=== PATIENT | female | born 1980 | race Two or more races ===

== ENCOUNTER 2024-06-10 01:25 | Emergency (ER) | payer BC, SELFPAY ==
[2024-06-10] VITALS (9 sets, daily range): BP systolic 93–122; BP diastolic 52–77; PULSE 72–76; RESP 16–18; TEMP 36.4–36.6; O2SAT 96–100
--- NOTE | ~2024-06-10 | CT_ITS ---
CT of the Abdomen and Pelvis: Indication: Abdominal pain Technique: 2.5 mm axial scans were obtained through the abdomen and pelvis following intravenous adm inistration of 100 cc of Omnipaque 350. Dose reduction technique was used on this scan by utilizing a utomated exposure control and iterative reconstruction technique. The dose-length product (DLP) was 1 92.26 mGy-cm. Findings: Scans through the lung bases are unremarkable. The liver, spleen, pancreas, gallbladder, adrenals and kidneys are within normal limits. No evidence of aortic aneurysm. No lymphadenopathy. No bowel obstruction or bowel wall thickening. There is no evidence to suggest acute appendicitis. Images through the pelvis were performed. Urinary bladder unremarkable. Multiple uterine fibroids are present. There is a 4.8 x 3.8 cm right adnexal mass with irregular peripheral enhancement (axial matthew ge 117), which could reflect additional exophytic fibroid, though ovarian lesion is completely exclud ed. There is trace abdominal pelvic ascites. Impression: Multiple uterine fibroids. Additional 4.9 x 3.8 cm right adnexal mass could reflect exophytic fibroid versus possibly right ovarian lesion. Consider ultrasound, or possibly MR, to further evaluate. Trace abdominal pelvic ascites, nonspecific. Reviewed, dictated and finalized at location M. Impression: Multiple uterine fibroids. Additional 4.9 x 3.8 cm right adnexal mass could ref lect exophytic fibroid versus possibly right ovarian lesion. Consider ultrasoun d, or possibly MR, to further evaluate. Trace abdominal pelvic ascites, nonspecific.
[2024-06-10 01:48] LABS: Basophils Percent Auto 0.3 % (0.2-1.2); Eosinophils Absolute Auto 0.2 K/mm3 (0-0.3); Hematocrit 39.5 % (37.0-47.0); Hemoglobin 13.3 g/dL (12.0-15.0); Immature Granulocyte Absolute 0.02 K/mm3 (0.00-0.031); Immature Granulocyte Percent A 0.3 % (0-0.5); Lymphocytes Percent Auto 23.4 % (18.3-44.2); Mean Corpuscular HGB Conc 33.7 g/dl (32-36); Mean Corpuscular Hemoglobin 29.9 pg (26-34); Mean Corpuscular Volume 88.8 fl (80-100); Mean Platelet Volume 8.9 fl (7.4-10.4); Monocytes Absolute Auto 0.3 K/mm3 (0.1-0.6); Neutrophils Absolute Auto 5.4 K/mm3 (1.3-6.7); Platelet Count Result 279 k/mm3 (150-375); Red Blood Count 4.45 M/mm3 (4.2-5.4); Red Cell Distribution Width 13.2 % (11.5-14.5); White Blood Count 7.7 K/mm3 (4.5-10.0)
[2024-06-10 02:03] LABS: Alanine Aminotransferase 17 U/L (6-35); Albumin Level 4.3 g/dL (3.5-5.1); Alkaline Phosphatase 105 U/L (38-126); Anion Gap 8 mmol/L (4-12); Aspartate Amino Transferase 25 U/L (14-36); Bilirubin,Total 0.3 mg/dL (0.2-1.3); Blood Urea Nitrogen 12 mg/dL (7-17); Calcium 8.8 mg/dL (8.4-10.2); Carbon Dioxide 26 mmol/L (22-30); Chloride 103 mmol/L (98-107); Estimated CRCL calculation 86 ml/min; Estimated Glomerular Filt Rate > 60; Glucose 107 mg/dL (65-110); Lipase 73 U/L (23-300); Potassium 3.6 mmol/L (3.4-5.0); Sodium 137 mmol/L (137-145)
[2024-06-10 02:06] LABS: Bacteria Urine None Seen /hpf; Non Pathogenic Casts 0-2; RBC Urine >100 /hpf (0-2); Squamous Epithelial Cell Urine None Seen /hpf (Few)
[2024-06-10 02:14] LABS: Add Urine Microscopic? YES; Appearance Urine Cloudy (Clear); Bilirubin Urine Negative (Negative); Blood Urine 3+ (Negative); Color Urine Light Red (Yellow); Glucose Urine UA Negative (Negative); Ketones Urine Negative (Negative); Leukocyte Esterase Ur Trace LEU/UL (Negative); Nitrate Urine Negative (Negative); Protein Urine 2+ mg/dL (Negative); Specific Grav Ur 1.009 (1.001-1.035); pH Urine 6.5 (5.0-9.0)
[2024-06-10 03:32] LABS: Pregnancy On Board Control Positive; Urine Pregnancy Test Negative
--- NOTE | 2024-06-10 04:50 | PC.NURSE ---
pt declines morphine and zofran at this time. pt does not want this strong of a medication at this time.
[2024-06-10] MEDS: ACETAMINOPHEN 325 MG TABLET 650 MG PO (04:52)
--- NOTE | 2024-06-10 06:25 | ED.ABDPAIN ---
HPI - Abdominal Pain General Chief Complaint: Abdominal Pain Stated Complaint: lower abd pain Time Seen by Provider: 06/10/24 03:09 History of Present Illness HPI narrative: Patient is a 43-year-old female who presents to the emergency department this is complaining of lower abdominal pain mainly in the suprapubic region and left lower quadrant. Patient states that the pain has been present for 3 days and has persisted so she from decided to come to the emergency department for further evaluation. Patient admits that she has had the same pain which normally occurs around her menstrual cycle for the past 3 months. Patient has not followed up with her primary care physician and states that she does not have an OBGYN. Denies any nausea or vomiting, any diarrhea, constipation, chest pain, shortness of breath, fevers or chills. Related Data Allergies Allergy/AdvReac Type Severity Reaction Status Date / Time No Known Allergies Allergy Verified 06/10/24 01:26 Review of Systems Review of Systems: All systems are reviewed and are negative unless stated otherwise in the HPI. Exam Narrative: General: Alert, awake, afebrile, in no acute distress. HEENT: PERRL, no rhinorrhea, no post nasal drip, oropharynx clear. Cardiovascular: Regular rate and rhythm, no murmurs, rubs or gallops, no peripheral edema. Respiratory: Clear to auscultation bilaterally, no tachypnea, no wheezing, no rhonchi, no rubs, no respiratory distress. Abdomen: Soft, tenderness palpation over the suprapubic region, nondistended, no rebound, no guarding, no peritoneal signs. Musculoskeletal: No joint swelling or deformity, normal muscle tone. Skin: No rashes or petechia, no signs of infection. Neurological: Alert and oriented to person, place, and time. Follows all commands. No focal deficits, speech is clear and fluent. Course Vital Signs Vital signs: Vital Signs Temperature 97.5 F L 06/10/24 01:34 Pulse Rate 72 06/10/24 01:34 Respiratory Rate 18 06/10/24 01:34 Blood Pressure 117/77 06/10/24 01:34 Pulse Oximetry 100 06/10/24 01:34 Oxygen Delivery Room Air 06/10/24 01:34 Temperature 97.9 F 06/10/24 07:03 Pulse Rate 76 06/10/24 07:03 Respiratory Rate 16 06/10/24 07:03 Blood Pressure 117/76 06/10/24 07:03 Pulse Oximetry 98 06/10/24 07:03 Oxygen Delivery Room Air 06/10/24 01:34 MDM - Abdominal Pain MDM Narrative Medical decision making narrative: The patient was evaluated by myself in the emergency department. History is obtained from patient who is an independent historian and physical exam was performed. External medical records were reviewed at this time. IV was established and pertinent tests were ordered. Patient was administered 4 mg of IV Zofran and patient refused morphine as she states that her pain is not that bad at this time she was administered 650 mg of oral Tylenol pending CT results. Laboratory results obtained revealing no acute process. Urinalysis revealed hematuria. Patient denies any history of kidney stones and states that she is currently on her menstrual cycle. Imaging studies obtained included CT abdomen and pelvis with IV contrast which was independently interpreted by me revealing: Multiple uterine fibroids. Additional 4.9 x 3.8 cm right adnexal mass could reflect exophytic fibroid versus possibly right ovarian lesion. Consider ultrasound, or possibly MR, to further evaluate. Trace abdominal pelvic ascites, nonspecific. Patient was informed of these findings at bedside and informed of her right ovarian and that she will likely need an ultrasound for better visualization. Patient's abdominal pain is unlikely due to this right ovarian mass since her pain was originally in the suprapubic and left lower quadrant. Patient was informed that this could be due to her ovarian fibroids but that she still needs to follow-up with OB to have an ultrasound to better visualize this mass and to rule out o
[2024-06-10] MEDS: KETOROLAC 15 MG/ML VIAL (*BKC) IV PUSH (06:48)
== END 2024-06-10 07:05 | disposition home or self-care (01) ==
PROVIDERS: Emergency Provider Emergency Medicine; PCP Family Medicine Adolescent Medicine
DX: R19.00 Intra-abdominal and pelvic swelling, mass and lump, unspecified site (principal); N83.9 Noninflammatory disorder of ovary, fallopian tube and broad ligament, unspecified
CPT/HCPCS: 36415; 74177; 80053; 81001; 81025; 83690; 85025; 87086; 87088; 96374; 96375; 99284; A9270; J1885; Q9967

== ENCOUNTER 2024-06-18 13:03 | Outpatient (CLI) | payer BC, SELFPAY ==
--- NOTE | ~2024-06-18 | US_ITS ---
EXAMINATION: US pelvic complete w TV INDICATION: Inflammatory disorders of the female reproductive system Comparison:No prior studies for comparison. TECHNIQUE: Multiple transabdominal and endovaginal sonographic images of the pelvis performed. FINDINGS: The uterus measures 7.4 x 6.2 x 3.8 cm. There are multiple uterine fibroids, largest measur ing 3 cm. The endometrial complex measures 6 mm. The right ovary measures 3.3 x 2.7 x 3.1 cm and the left ovary measures 2.8 x 3.7 x 2.4 cm. There is a right ovarian cyst containing low level internal echoes measuring 2.4 cm. There are small follicles in each ovary. Normal doppler signal in both ovaries. There is no free fluid in the pelvis. There are no abnormal masses seen on either side. IMPRESSION: 1. Minimally complicated 2.4 cm right ovarian cyst. 2: Multiple uterine fibroids, largest measuring 3 cm. Reviewed, dictated and finalized at location B.
== END 2024-06-18 13:04 | disposition home or self-care (01) ==
LOC: GOSHIMG 13:07
PROVIDERS: PCP Family Medicine Adolescent Medicine; Visit Provider Student in an Organized Health Care Education/Training Program
DX: N83.8 Other noninflammatory disorders of ovary, fallopian tube and broad ligament (principal); N83.291 Other ovarian cyst, right side; D25.9 Leiomyoma of uterus, unspecified
CPT/HCPCS: 76830; 76856

== ENCOUNTER 2025-01-09 08:27 | Outpatient (CLI) | payer BC, SELFPAY ==
[2025-01-09 09:00] LABS: Hematocrit 41.8 % (37.0-47.0); Hemoglobin 13.7 g/dL (12.0-15.0); Mean Corpuscular HGB Conc 32.8 g/dl (32-36); Mean Corpuscular Hemoglobin 29.8 pg (26-34); Mean Corpuscular Volume 91.1 fl (80-100); Mean Platelet Volume 9.3 fl (7.4-10.4); Platelet Count Result 230 k/mm3 (150-375); Red Blood Count 4.59 M/mm3 (4.2-5.4); Red Cell Distribution Width 12.9 % (11.5-14.5); White Blood Count 6.5 K/mm3 (4.5-10.0)
--- OUTSIDE RECORDS SUMMARY | 2025-01-10 11:11 | XMS_ITS | Encounter Summary ---
Author Organization [facility] Address [address] [place] [address] Care Team Providers Care Mussel Farmer Name Role Phone Kareen Vann FLATWARE MAKER Primary Care Provider Sammie Price FLATWARE MAKER Primary Care Provider [phone] Encounter Details Date Type Department Care Team (Late st Contact Info) Description 01/10/2024 [employer] Message Enc [facility] Family Medicine [facility] [address] [place] [address] Usha, [facility] Provider Mammogram Social History Tobacco Use Types Packs/Day Years Used Date Smoking Tobacco: Never Smokeless Tobacco: Never Alcohol Use Standard Drinks/Week Comments Yes 0 (1 standard drink = 0.6 oz pur e alcohol) PHQ-2 Answer Date Recorded Patient Health Questionnaire-2 Score 2 12/28/2022 Comments No Sex and Gender Information Value Date Recorded Sex Assigned at Not on file 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
--- OUTSIDE RECORDS SUMMARY | 2025-01-10 11:11 | XMS_ITS | Clinical Summary ---
Author Organization [facility] Address [address] [place] [address] Care Team Providers Care Improvement Nurse Name Role Phone Sammie Xavier NP Primary Care Provider [phone] Allergies No known active allergies Medications cetirizine (ZYRTEC) 10 MG chewable tablet Chew 1 tablet (10 mg total) by mouth daily. Active fluticasone propionate (FLONASE) 50 MCG/ACT nasal sprayIndications :Allergic rhinitis, unspecified seasonality, unspecified trigger SPRAY 2 SPRAYS INTO EACH NOSTRIL EVERY DAY 16 mL 01/30/2023 Active Active Problems No known active problems Family History Medical History Relation Comments Heart Disease Father Hypothyroidism Mother Relation Status Comments Father Alive Mother Alive Social History Tobacco Use Types Packs/Day Years Used Date Smoking Tobacco: Never Smokeless Tobacco: Never Tobacco Cessation:Counseling Given: No Alcohol Use Standard Drinks/Week Comments Yes 0 (1 standard drink = 0.6 oz pur e alcohol) PHQ-2 Answer Date Recorded Patient Health Questionnaire-2 Score 2 12/28/2022 Comments No Sex and Gender Information Value Date Recorded Sex Assigned at Not on file 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 Gender Identity Not on file Sexual Orientation Not on file Last Filed Vital Signs Vital Sign Reading Time Taken Comments Blood Pressure 124/72 12/11/2023 1:57 PM CDT Pulse 74 12/11/2023 1:57 PM CDT Temperature 36.3 C (97.4 F) 12/11/2023 1:57 PM CDT Respiratory Rate 16 12/11/2023 1:57 PM CDT Oxygen Saturation 98% 12/11/2023 1:57 PM CDT Inhaled Oxygen Concentration - - Weight 56.2 kg (123 lb 12.8 oz) 12/11/2023 1:57 PM CDT Height 152.4 cm (5') 12/11/2023 1:57 PM CDT Body Mass Index 24.18 12/11/2023 1:57 PM CDT Plan of Treatment Health Maintenance Due Date Last Done Comments Cervical Cancer Screening Pap Smear (Age 30 to 64) Every 3 Years 1979 Colorectal Cancer Screening Colonoscopy (10 Years) 1979 Annual Physical 11/17/1982 Hepatitis C 11/17/1997 DTaP, Tdap and Td Vaccines (1 - Tdap) 11/17/1998 Hepatitis B Vaccines (1 of 3 - 19+ 3-dose series) 11/17/1998 Cervical Cancer Screening Pap with HPV Testing (Age 30 to 64) Every 5 Years 11/17/2009 Cervical Cancer Screening with HPV 11/17/2009 COVID-19 Vaccine ( season) 2024 08/10/2022, 08/29/2021, 12/24/2020, Additional history exists PHQ-2 (Physician [place]) 09/10/2024 Mammogram Screening 12/25/2025 12/26/2023 HPV Vaccines Aged Out No longer eligi ble based on patient's age to complete this topic Meningococcal B Vaccine Aged Out No l onger eligible based on patient's age to complete this topic Meningococcal Vaccine Aged Out No hannah jose eligible based on patient's age to complete this topic Pneumococcal Vaccine: Pediatrics (0 to 5 Years) and At-Risk Patients (6 to 49 Years) Aged Out No longer eligible based on patient's age to complete this topic RSV Immunizations Under 20 Months Aged Out No longer eligible based on patient's age to complete this topic Procedures Procedure Name Priority Date/Time Associated Diagnosis Comments MG SCREENING W FROYLAN MARGARITO DIGI Routine 12/26/2023 3:03 PM CDT Encounter for screening mammogram for malignant neoplasm of breast from Last 3 Months or Most Recently Relevant to Health Maintenance Results * MG SCREENING W FROYLAN MARGARITO DIGI (12/26/2023 3:03 PM CDT) Anatomical Region Laterality Modality Breast Bilateral Mammography 12/26/2023 3:52 PM CDT Impressions 12/26/2023 3:55 PM CDT ===== IMPRESSION: ===== 1. No mammographic evidence of malignancy. Assessment: ACR BI-RADS 2 - BENIGN FINDING(S) Recommendation: 1:Routine Screening Bilateral Comments: Ordered By: EDGAR VANN Interpreted By: Kana Cruz, 12/26/2023 3:52 PM Narrative 12/26/2023 3:55 PM CDT EXAMINATION: Digital bilateral screening mammogram with 3-D tomosynthesis EXAM DATE/TIME: 12/26/2023 2:47 PM REASON FOR EXAM: screening COMPARISON: Baseline exam Technique: Digital screening mammography of both breasts was performed in addition to 3-D Tomosynthesis technique. This study was read with the assistance of a computer-aided detection system. Tissue density: The breast tissue is extremely dense, which lowers the sensitivity of mammography. Findings: There is no focal asymmetry, dominant mass lesion, area of skin thickening, or cluster of suspicious appearing calcifications in either breast to suggest malignancy. Edgar Vann FINDING FASTENER MAMMO Final Result from Last 3 Months or Most Recently Relevant to Health Maintenance Insurance Care Teams Improvement Nurse Relationship Specialty Start Date End Date Sammie Xavier NP [address] [place] [address] PCP - General NURSE PRACTITIONER 02/07/24
== END 2025-01-09 08:28 | disposition home or self-care (01) ==
LOC: ANHSURGERY 08:31
PROVIDERS: PCP Family Medicine Adolescent Medicine; Visit Provider Student in an Organized Health Care Education/Training Program
DX: D25.9 Leiomyoma of uterus, unspecified (principal)
CPT/HCPCS: 36415; 85027

== ENCOUNTER 2025-01-20 02:24 | Day surgery (SDC) | payer BC, SELFPAY ==
[2025-01-08 08:26] VITALS: BMI 22.6
--- NOTE | 2025-01-08 08:36 | PC.NURSE ---
Report to the Outpatient Waiting Room, entrance under the green pavilion located off [facility], at time _0630_ on date _[id number]_. Planned Procedure Time: _0830_. Time changes happen often and if your time is changed the preop area will call you the afternoon before. - You and your visitor will be asked to self-screen and do not enter if you have any COVID symptoms. Please call surgeon if you need to reschedule. - A mask is optional within the hospital at this time. Patients may have clear liquids (water, carbonated beverages, clear teas, apple juice) until 3 hours prior to surgery with a maximum of 20 ounces. - No food from midnight until time of surgery and no smoking, or chewing tobacco (or any form of nicotine). No chewing gum, candy or mints. Take only the following medications with a SIP of water on the morning of surgery: __Norethindrone___ DO NOT STOP ANY OF YOUR OTHER PRESCRIPTION MEDICATIONS PRIOR TO SURGERY EXCEPT THE FOLLOWING Hold all vitamins and supplements for 3 days per anesthesiologist. Medications to discontinue per physician Ask for Dr Jones's permission before taking any more Ibuprofen. Tylenol is OK Date to take last dose Please no make-up, nail welsh, hairspray, perfume, deodorant, or body powder the day of surgery. No jewelry (including any body piercings) or valuables the day of surgery, leave them at home. Please take a shower or bath the night before, or the morning of, surgery with an antibacterial soap. Wear comfortable, loose fitting clothing. - Jewelry must be removed prior to entering the operating room. Rings and piercings that are not removed may be cut off. - The hospital will not accept responsibility for valuables. - Please leave all valuables, including medications, at home the day of surgery. If you are going home after surgery, a licensed utility worker driver must drive you home. - NO public transportation without another adult if you receive anesthesia. - We recommend that an adult stay with you for 24 hours following discharge. - We also recommend that you do not drive, make important decision, drink alcoholic beverages, or take any drugs that were not prescribed by your health care provider for at least 24 hours after your discharge time. Follow any additional instructions given to you from your surgeon. Telephone instructions given to __Rachnas__and asked if any additional questions and then verbalized understanding. Patient advised to call surgeon office or pre surgery nurse liaison [phone] if any additional questions.
--- NOTE | 2025-01-19 13:50 | P.HP_ITS ---
H&P: HPI History of Present Illness Date/Time: 01/19/25 13:50 Chief Complaint: abnormal uterine bleeding Uterine fibroids pelvic pain Narrative: 44-year-old female who presents for robotic assisted TLH / BS for management of abnormal uterine bleeding secondary to uterine fibroids. Patient was having heavy prolonged menses that were increased in frequency. Patient has been on progesterone only contraception. Patient is requesting definitive management via hysterectomy. Review of Systems Cardiovascular: Cardiovascular: Denies chest pain, Denies leg edema, Denies palpitations, Denies dyspnea and Denies dyspnea on exertion Respiratory: Respiratory: Denies cough, Denies dyspnea and Denies dyspnea on exertion Gastrointestinal: Gastrointestinal: Denies abdominal pain, Denies constipation, Denies diarrhea, Denies nausea and Denies vomiting Genitourinary: Genitourinary: Denies hematuria, Denies urinary frequency, Denies dysuria, Denies pelvic pain, Denies urinary incontinence and Denies vaginal discharge Neurologic: Reports system reviewed and no additional complaints, except as documented Psychiatric: Psychiatric: Reports no additional psychiatric complaints Endocrine: Endocrine: Denies palpitations [facility] Past Medical History Medical History (Updated 01/19/25 @ 13:52 by Sreedhar Jones MD) Screening mammogram for breast cancer Family History Family History (Updated 12/03/24 @ 11:11 by MIRIAN Winkler) Mother Thyroid disorder Father Heart disease Social History Social History (Updated 12/03/24 @ 11:12 by MIRIAN Winkler) Smoking status: Never smoker Alcohol intake: current Substance use: never Substance use type: does not use Do You Feel Safe in your Home?: Yes Lack of Transportation: No Lack of Food: Never True Current Housing: I Have Housing Concerned About Future Housing: No Difficulty Paying Gas/Electric Bills: No Difficulty Paying for Meds: No Currently Unemployed: No Education: Trade/Vocational Certificate Difficulty w/ Childcare or Family Care: No Living arrangements: with family Additional living arrangements comments: Occupation/Education: occupation Additional occupation/education comments: house keeper Gender identity (if verbalized by the patient): Female Sexual Orientation (if Verbalized by the Patient): Straight or Heterosexual Spiritual care concerns: Yes (No blood transfusion.) Meds Home Medications and Allergies Home Medications Medication Instructions Recorded Confirmed Type norethindrone (contraceptive) 0.35 0.35 mg PO DAILY #112 tabs 10/16/24 05/01/25 Rx mg tablet acetaminophen 325 mg tablet 325 mg PO Q6H PRN pain 01/08/25 01/08/25 History (Aminofen) ascorbic acid (vitamin C) 500 mg 250 mg PO DAILY 01/08/25 01/08/25 History tablet (C-500) ibuprofen 200 mg tablet (Advil) 400 mg PO Q6H PRN pain 01/08/25 01/08/25 History melatonin 3 mg capsule 3 mg PO HS PRN sleep 01/08/25 01/08/25 History multivitamin (Daily Multi-Vitamin 1 tablet PO DAILY 01/08/25 01/08/25 History tablet) Allergies Allergy/AdvReac Type Severity Reaction Status Date / Time No Known Allergies Allergy Verified 01/08/25 08:21 Exam Const: General: cooperative, comfortable and no acute distress Eyes: EOM: EOMs intact bilaterally Neck: Neck: supple Thyroid: thyroid normal Chest: Breast/axilla inspection: normal inspection of the breasts Breast/axilla palpation: normal palpation of the breasts, normal palpation of the axillae and no axillary lymphadenopathy Resp: Effort & Inspection: normal respiratory effort Auscultation: clear to auscultation bilaterally Cardio: Rate: regular rate Rhythm: regular rhythm GI: Inspection: non-distended GI Palp: Yes Soft to palpation, No Tenderness to palpation present (GI) and No Guarding due to palpation present (GI) Auscultation: normal bowel sounds : Speculum Exam - Vagina: No vaginal bleeding OB/external & speculum: external exam normal; No vaginal bleeding Skin: General skin exam: normal color and no rashes or lesions noted Neuro: Cognition (Neuro): normal cognition Speech: normal speech Extrem: General: normal to inspection Psych: Mental Status: mental status grossly normal Affect: normal affect Assessment and Plan Assessment and plan (1) Abnormal uterine bleeding (AUB): Code(s): N93.9 - Abnormal uterine and vaginal bleeding, unspecified Status: Acute (2) Uterine fibroid: Code(s): D25.9 - Leiomyoma of uterus, unspecified Status: Acute Assessment and Plan: 44-year-old female who presents for follow-up regarding uterine fibroids Patient was seen in the emergency room for pelvic pain and acute vaginal bleeding Approximately [address] scan showed an enlarged uterus with multiple fibroids Pelvic ultrasound was obtained and images reviewed Ultrasound shows uterus measures 7.4 x 6.2 x 3.8 cm. There are multiple uterine fibroids, largest measuring 3 cm there is also a simple appearing 2 cm cyst on the right ovary patient was counseled on medical and surgical management previously Patient has been on progesterone OCPs for the past 5 months Patient reports control of bleeding Patient is still having some pelvic pain and is interested in definitive management via hysterectomy Risks, benefits, alternatives reviewed Will plan for robotic assisted total laparoscopic hysterectomy and bilateral salpingectomy for management of uterine fibroids (3) Pelvic pain: Code(s): R10.2 - Pelvic and perineal pain Status: Acute
[2025-01-20] VITALS (11 sets, daily range): BP systolic 107–144; BP diastolic 61–84; PULSE 64–92; RESP 10–17; TEMP 36.2–36.9; O2SAT 97–100; BMI 22.3
--- OUTSIDE RECORDS SUMMARY | 2025-01-20 02:27 | XMS_ITS | Encounter Summary ---
Author Organization [facility] Address [address] [place] [address] Care Team Providers Care Screw Machine Repairer Name Role Phone Kareen Vann SPOOL WINDER Primary Care Provider Sammie Price SPOOL WINDER Primary Care Provider [phone] Encounter Details Date Type Department Care Team (Late st Contact Info) Description 01/10/2024 [employer] Message Enc [facility] Medical Group Family Medicine [facility] [address] [place] [address] Usha, [facility] Provider Mammogram Social History Tobacco Use Types Packs/Day Years Used Date Smoking Tobacco: Never Smokeless Tobacco: Never Alcohol Use Standard Drinks/Week Comments Yes 0 (1 standard drink = 0.6 oz pur e alcohol) PHQ-2 Answer Date Recorded Patient Health Questionnaire-2 Score 2 12/28/2022 Comments No Sex and Gender Information Value Date Recorded Sex Assigned at Not on file 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 Gender Identity Not on file Sexual Orientation Not on file documented as of this encounter Plan of Treatment Not on file documented as of this encounter Visit Diagnoses Not on filedocumented in this encounter Additional Health Concerns Assessment Noted Time PHQ-9 Depression Total Score: 16 023 10:53 AM CDT documented as of this encounter Care Teams Screw Machine Repairer Relationship Specialty Start Date End Date Kareen Vann NP PCP - General NURSE PRACTITIONER 11/16/22 02/06/24 Sammie Xavier NP [address] [place], [place] [id number] PCP - General NURSE PRACTITIONER 5/30/24 documented as of this encounter
--- OUTSIDE RECORDS SUMMARY | 2025-01-20 02:27 | XMS_ITS | Clinical Summary ---
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 Edgar Vann DOCK COORDINATOR MAMMO Final Result from Last 3 Months or Most Recently Relevant to Health Maintenance Insurance Care Teams High Lift Driver Relationship Specialty Start Date End Date Sammie Xavier NP [address] [place] [address] PCP - General NURSE PRACTITIONER 02/07/24
--- NOTE | 2025-01-20 07:17 | P.PNAN_ITS ---
Anes - Initial Pre Proc Eval Procedure: Operation Date: 01/20/25 08:30 Proposed Procedures p Robotic Assisted Total Laparoscopic Hysterectomy with Bilateral Salpingectomy - Sreedhar Jones MD Date/Time: 01/20/25 07:17 Surgeon: Sreedhar Jones MD Pre Op Diagnosis: Abnormal Uterine Bleeding Patient Data Age: 44 Gender: F Height: 1.52 m Weight: 52.7 kg Allergies Allergy/AdvReac Type Severity Reaction Status Date / Time No Known Allergies Allergy Verified 01/08/25 08:21 Home Medications Medication Instructions Recorded Confirmed Type norethindrone (contraceptive) 0.35 0.35 mg PO DAILY #112 tabs 06/25/24 01/08/25 Rx mg tablet acetaminophen 325 mg tablet 325 mg PO Q6H PRN pain 01/08/25 01/08/25 History (Aminofen) ascorbic acid (vitamin C) 500 mg 250 mg PO DAILY 01/08/25 01/08/25 History tablet (C-500) ibuprofen 200 mg tablet (Advil) 400 mg PO Q6H PRN pain 01/08/25 01/08/25 History melatonin 3 mg capsule 3 mg PO HS PRN sleep 01/08/25 01/08/25 History multivitamin (Daily Multi-Vitamin 1 tablet PO DAILY 01/08/25 01/08/25 History tablet) Patient hx anesthesia problems: none Family hx anesthesia problems: none Results Review: All pre-operative results and documents have been reviewed as part of the pre- operative evaluation. PENDING SALE TO [facility] Past Medical History Medical History Screening mammogram for breast cancer Family History Family History Mother Thyroid disorder Father Heart disease Social History Social History Smoking status: Never smoker Alcohol intake: current Substance use: never Substance use type: does not use Do You Feel Safe in your Home?: Yes Lack of Transportation: No Lack of Food: Never True Current Housing: I Have Housing Concerned About Future Housing: No Difficulty Paying Gas/Electric Bills: No Difficulty Paying for Meds: No Currently Unemployed: No Education: Trade/Vocational Certificate Difficulty w/ Childcare or Family Care: No Living arrangements: with family Additional living arrangements comments: Occupation/Education: occupation Additional occupation/education comments: house keeper Gender identity (if verbalized by the patient): Female Sexual Orientation (if Verbalized by the Patient): Straight or Heterosexual Spiritual care concerns: Yes (No blood transfusion.) Anes - Eval Final PreProcedure Day of Procedure 01/20/25 07:17 Patient weight: normal Heart: regular rate and rhythm Lungs: clear to auscultation Airway: Mallampati scale class II Neurological: alert and oriented Last oral intake: >/= 8 hours ASA classification: I Emergent: no Anesthetic plan: proceed Anesthesia type and monitoring: general ETT and standard monitoring Results Review: All pre-operative results and documents have been reviewed as part of the pre- operative evaluation. Informed Consent: The patient's anesthetic plan and its attendant risks and benefits were discussed with the patient/family/POA. Questions were solicited and answers provided to the satisfaction of the patient/family/POA.
[2025-01-20] MEDS: LACTATED RINGERS 1,000 ML 30 ML IV CONT ×2 (07:20→10:42)
[2025-01-20] MEDS: SCOPOLAMINE 1 MG PATCH 1 PATCH TRANSDERM (07:30)
[2025-01-20] MEDS: ACETAMINOPHEN 500 MG TABLET 1000 MG PO ×3 (07:30→19:21)
[2025-01-20] MEDS: KETOROLAC 15 MG/ML VIAL (*BKC) IV PUSH (07:30)
--- NOTE | 2025-01-20 07:51 | WPDHPUPDATE1 ---
History and Physical Update Update Date/Time: 01/20/25 07:51 History and Physical has been reviewed, including an updated exam of the patient. There are NO changes in the patient's condition. Risks, benefits, and alternatives have been discussed and questions answered. Patient agrees to proceed with procedure.
[2025-01-20 07:52] LABS: BEDSIDEPREGUCG Negative (Negative)
[2025-01-20] MEDS: ceFAZolin 2 GM/D5W 50 ML 2 GM/50 ML BAG IVPB (08:34)
[2025-01-20] MEDS: LIDO 1%/EPINEPHRINE 1:100,000 20 ML VIAL 18 ML INFILTRATE (09:33)
--- NOTE | 2025-01-20 10:33 | P.OP_ITS ---
Procedure Note - Detailed Date of Procedure 01/20/25 Pre-op Diagnosis Abnormal Uterine Bleeding uterine fibroid Post-op Diagnosis Other (AUB, Uterine fibroid, Ovarian cyst) Procedure Performed robotic TLH/BS, Right oophorectomy Surgeon Sreedhar Jones MD Anesthesia General Indications Pelvic pain AUB uterine fibroid Findings Multiple uterine fibroids noted, normal appearing fallopian tubes. Right ovary noted to have a large cyst filled with dark cholcolate-appearing blood Description of Procedure PROCEDURE IN DETAIL: After the patient was appropriately consented she was taken to the operating room where she was transferred to the table in a dorsal supine position. General anesthesia was then induced with endotracheal intubation. The patient was transferred to a dorsal lithotomy position using adjustable yellow-fin stirrups. Her position was adjusted for appropriate support of her lower back and lower extremities. The patient was prepped and draped. A transurethral grayson catheter was place. The cervix was sequentially dilated and a MAXIMUS uterine manipulator placed in typical fashion about a 3.5cm MARY ring. Gloves were changed. After confirmation of a functioning orogastric tube, lidocaine was injected at Bo's point in the LUQ and a 5mm incision was made. A 5mm Optiview trocar was then inserted into the abdominal cavity under direct visualization and done so without complication. The abdomen was then insufflated with approximately 2-3L of CO2 establishing a pneumoperitoneum and the patient was placed in Trendelenburg position. Just above the umbilicus in the midline, a 8 mm incision made after injection of lidocaine and a 8mm bladeless trocar advanced into the abdominal cavity under direct visualization without incident. We subsequently placed two robotic ports in a similar fashion, one in the left mid-quadrant and one in the right, 10cm lateral to the midline port. The robot was then docked. The above findings were noted. Given the large Right ovarian cyst distorting the normal anatomy, decision was made to remove the right ovary for evaluation of pathology and to help restore anatomy. The Right ovary was incidentally punctured with manipulation. A dark chocolate colored fluid was expressed. The cyst was copious irrigated and cleared of debris. The peritoneum was opened to help identify the infundibulopelvic ligament and its vessels. The right IP ligament was coagulated and transected. Dissection was carried out to open up the anterior and posterior peritoneum. Given that large amount of adhesions and difficulty with visualization, the decision was made to remove the right ovary and cyst from the uterus to aid in dissection. The right utero-ovarian ligament was identified and transected. Once the right ovary and cyst were removed, dissection was continued along the right uterus identifying the right uterine artery which was then coagulated and transected. The left fallopian tube was identified out to the fimbrae. The fallopian tube was then coagulated and ligated along the inferior mesosalpinx toward the uterus. The utero-ovarian ligament was identified and ligated. The round ligament was divided and the posterior aspect of the broad ligament was then skeletonized down to the level of the internal cervical os, mobilizing the ureter laterally. The bladder flap was then created sharply. The ipsilateral uterine artery was skeletonized, bipolar cauterized and transected. We ensured the vaginal pneumo-occluder balloon was insufflated and made a circumferential colpotomy using monopolar current. The uterus, cervix, and left tube were then delivered transvaginally. The right ovary, fallopian tube, and cyst were then removed through the vagina. I then re- approximated the colpotomy with a single interrupted 0-vicryl at the left apex and running #1 PDO Quill suture in 2 layers. Following this dissection, the abdomen and pelvis were copiously irrigated and all surgical sites found to be hemostatic. Skin sites were reapproximated with 4-0 Vicryl in a subcuticular fashion. Steri-Strips were placed. Given the large ovarian cyst distorting anatomy and the extensive dissection required in the Right ovarian fossa, decision was made to perform cystoscopy. The bladder was surveyed and there was no identified injury. Bilateral efflux from the ureters was noted. Cystoscopy was then ended. The patient tolerated the procedure well. Sponge, needle and instrument counts were correct x 2 and the patient was taken to recovery in stable condition. Ancef was given for antimicrobial prophylaxis. The patient had SCD's on for VTE prophylaxis during the entire procedure. Estimated Blood Loss 50 Drains No Packing No Pathology Yes (uterus, cervix, bilateral fallopian tubes, Right ovary and cyst) Complications No immediate complications Condition Stable Disposition PACU [facility] Billing Surgery - Charge Forward: Surgery Billing
[2025-01-20] MEDS: ONDANSETRON INJ 4 MG/2 ML VIAL IV PUSH ×2 (11:13→17:17)
[2025-01-20] MEDS: fentaNYL CITRATE INJ (*CRX) 100 MCG/2 ML VIAL 25 MCG IV PUSH (11:13)
[2025-01-20] MEDS: SIMETHICONE 80 MG TAB.CHEW PO ×2 (13:03→16:27)
[2025-01-20] MEDS: KETOROLAC 30 MG/ML VIAL (*BKC) IV PUSH ×2 (13:03→19:23)
[2025-01-20] MEDS: oxyCODONE HCL (*CRX) 5 MG TAB IR PO (14:26)
--- NOTE | 2025-01-20 15:24 | ADMGEN ---
This patient, Tigist Biggs, was admitted to OB 2nd Floor Room 283-00. Patient/family oriented to hospital policies and general routines including ID bracelet, bed and alarms, visiting hours, pain management, procedures, bathroom and other care routines, personal items, smoking policy, room service/diet, and visiting hours. Information on how to activate the Rapid Response Team has been discussed. Patient/Family are encouraged to report perceived risks to care and to ask questions if they do not understand what they are told or what they should do.
[2025-01-20] MEDS: DOCUSATE SODIUM 100 MG CAPSULE PO (16:27)
[2025-01-20] MEDS: LANOLIN (LANSINOH) 7.5 GM CREAM 1 APPLIC (17:39)
--- NOTE | 2025-01-20 19:17 | P.DS_ITS ---
DS: Admitting Diagnosis Discharge Date 01/21/25 Admitting Diagnosis uterine fibroid pelvic pain abnormal uterine bleeding DS: Discharge Diagnosis Discharge Diagnosis (1) Abnormal uterine bleeding (AUB): Code(s): N93.9 - Abnormal uterine and vaginal bleeding, unspecified Status: Acute (2) Uterine fibroid: Code(s): D25.9 - Leiomyoma of uterus, unspecified Status: Acute (3) Pelvic pain: Code(s): R10.2 - Pelvic and perineal pain Status: Acute DS: Summary Hospital Course Hospital Course: Tigist Biggs was admitted after robotic assisted total laparoscopic hysterectomy, bilateral salpingectomy, and right oophorectomy for abnormal uterine bleeding. The above procedure was performed with no complications. She is doing well post op. She states her pain is well controlled with PO medications. She reports minimal bleeding. She is ambulating up to the chair. Her grayson catheter was removed. She is tolerating PO without N/V. She reports passing flatus. Status at Discharge Overall status at discharge: patient is progressing back to baseline Time Spent with Patient Time attestation: Total time spent providing and/or coordinating discharge services: Time spent: Less than 30 minutes Exam Const: General: comfortable and no acute distress Limitations: no limitations Resp: Effort & Inspection: normal respiratory effort Auscultation: clear to auscultation bilaterally Cardio: Rate: regular rate Rhythm: regular rhythm GI: Inspection: non-distended GI Palp: Yes Soft to palpation, Yes Tenderness to palpation present (GI) (milder tenderness to deep palpation) and No Guarding due to palpation present (GI) Auscultation: normal bowel sounds Other: incisions C/D/I covered with dermabond Urinary Catheter: Urinary Catheter: urine clear Skin: General skin exam: normal color Extrem: General: normal to inspection Psych: Mental Status: mental status grossly normal Affect: normal affect DS: Data Data Completed and Pending Pending studies at discharge: Pending at discharge 01/20/25 10:25 Surgical [PTH] Routine Labs on day of discharge: Labs from last 24 hours 01/20/25 06:50 POC Urine HCG, Qual Negative Discharge Plan Discharge Patient Disposition: Home Patient Instructions: Laparoscopic Hysterectomy (DC) Patient Language: Amharic Stand Alone Forms: General Discharge Instructions Follow-up/Referrals: Sreedhar Jones MD [Physician] - 2 Weeks Discharge Medications: New oxycodone-acetaminophen 5-325 mg tablet 1 tablet PO Q6H PRN (Reason: pain) Qty: 28 0RF ibuprofen 600 mg tablet 600 mg PO Q6H PRN (Reason: pain) Qty: 30 0RF Continued norethindrone (contraceptive) 0.35 mg tablet 0.35 mg PO DAILY Qty: 112 2RF multivitamin [Daily Multi-Vitamin] Tablet 1 tablet PO DAILY ascorbic acid (vitamin C) [C-500] 500 mg tablet 250 mg PO DAILY ibuprofen [Advil] 200 mg tablet 400 mg PO Q6H PRN (Reason: pain) acetaminophen [Aminofen] 325 mg tablet 325 mg PO Q6H PRN (Reason: pain) melatonin 3 mg capsule 3 mg PO HS PRN (Reason: sleep)
[2025-01-20] MEDS: oxyCODONE HCL (*CRX) 5 MG TAB IR 10 MG PO (19:27)
[2025-01-20] MEDS: LACTATED RINGERS 1,000 ML 999 ML (21:15)
[2025-01-21] MEDS: KETOROLAC 30 MG/ML VIAL (*BKC) IV PUSH (01:55)
[2025-01-21] MEDS: ACETAMINOPHEN 500 MG TABLET 1000 MG PO (01:55)
[2025-01-21 02:49] LABS: Basophils Percent Auto 0.2 % (0.2-1.2); Hematocrit 34.2 % (37.0-47.0); Hemoglobin 11.2 g/dL (12.0-15.0); Immature Granulocyte Absolute 0.02 K/mm3 (0.00-0.031); Immature Granulocyte Percent A 0.2 % (0-0.5); Lymphocytes Absolute Auto 1.29 K/mm3 (0.9-3.2); Lymphocytes Percent Auto 12.9 % (18.3-44.2); Mean Corpuscular HGB Conc 32.7 g/dl (32-36); Mean Corpuscular Hemoglobin 29.7 pg (26-34); Mean Corpuscular Volume 90.7 fl (80-100); Mean Platelet Volume 9.2 fl (7.4-10.4); Monocytes Absolute Auto 0.6 K/mm3 (0.1-0.6); Monocytes Percent Auto 6.3 % (2.6-8.5); Neutrophils Absolute Auto 8.1 K/mm3 (1.3-6.7); Neutrophils Percent Auto 80.4 % (45.5-73.1); Platelet Count Result 208 k/mm3 (150-375); Red Blood Count 3.77 M/mm3 (4.2-5.4); Red Cell Distribution Width 12.6 % (11.5-14.5)
[2025-01-21 03:02] LABS: Anion Gap 6 mmol/L (4-12); Blood Urea Nitrogen 8 mg/dL (7-17); Calcium 8.1 mg/dL (8.4-10.2); Carbon Dioxide 24 mmol/L (22-30); Chloride 104 mmol/L (98-107); Estimated CRCL calculation 82 ml/min; Estimated Glomerular Filt Rate > 60; Glucose 114 mg/dL (65-110); Potassium 3.7 mmol/L (3.4-5.0); Sodium 134 mmol/L (137-145)
[2025-01-21 04:00] VITALS: BP 97/55; PULSE 66; RESP 16; TEMP 36.7; O2SAT 99
== END 2025-01-21 04:00 | disposition home or self-care (01) ==
LOC: ANHSURGERY 06:36 → ANHOB2 12:29
PROVIDERS: PCP Family Medicine Adolescent Medicine; Visit Provider Student in an Organized Health Care Education/Training Program
PROC: (CPT 58571; principal; 2025-01-20 08:30)
DX: D25.1 Intramural leiomyoma of uterus (principal); N72 Inflammatory disease of cervix uteri; N88.8 Other specified noninflammatory disorders of cervix uteri; N83.8 Other noninflammatory disorders of ovary, fallopian tube and broad ligament; N70.11 Chronic salpingitis; N80.101 Endometriosis of right ovary, unspecified depth; N93.9 Abnormal uterine and vaginal bleeding, unspecified; R10.2 Pelvic and perineal pain
CPT/HCPCS: 58571; S2900; 36415; 80048; 85025; 88307; 99199; A9270; J0690; J1100; J1171; J1885; J2003; J2004; J2250; J2405; J2704; J3010; J7030; J7120

== ENCOUNTER 2025-09-08 15:45 | Outpatient (RCR) | payer BC, SELFPAY ==
--- NOTE | 2025-08-04 10:33 | OPREHPOC ---
Outpatient Therapy Plan of Care This is a Multidisciplinary Plan of Care that may contain components documented by all disciplines (PT, OT, and ST.) PT Problem 1 PT Problem #1 Knowledge Deficit PT Goal 1 Goal / Goal Update 1. Patient will perform independent HEP Target Visit 3 PT Problem 2 PT Problem #2 Pain PT Goal 1 Goal / Goal Update 1. Pain highest 2/10 with typical activities including exercise 2. No pain on pelvic exam to allow for pap smears etc. Target Visit 6 PT Problem 3 PT Problem #3 Impaired Functional ADLs PT Goal 1 Goal / Goal Update 1. Patient will void no more than 8 times per 24 hour period 2. Patient will be able to hold urge to void at least 30 minutes
--- NOTE | 2025-08-04 10:34 | PTOPEVAL1 ---
Assessment and note entered by Rica Bird DPT Evaluation Information Assessment Status Evaluation Diagnosis g89.19 ICD-10 Condition Codes (PT) Weakness R53.1,Pelvic and perineal pain R10.2 Subjective Information Pt had a partial hysterectomy in January and started having pain after. Reports as abdominal and pelvic . Highest pain 7/10 and 0/10 lowest. Pain increases most with exercising and walking, sitting too long. Rest improves it, sometimes takes pain medicine. Voids 8 times a day, 3 times a night. No urinary incontinence. Can hold urge to void 5 minutes, sometimes longer but is uncomfortable. Denies pain with urination. BM once a day. Has had pain with intercourse and pap smears. Reports ovarian cysts and fibroids caused pain and led to hysterectomy. Also has history of endo. Pt has never been , no other surgeries. Patient goal: get rid of sensation that something is coming out, know what exercises are safe Return to MD not scheduled. Reported Pain Level Pain Score 0: Self Report Assessment PT Clinical Summary The patient is presenting to skilled therapy following a hysterectomy in January with reports of pelvic and abdominal pain, as well as possible increased urinary frequency and urgency. PMH includes endometriosis. She presents with increased pelvic floor muscle tone and pain with palpation, as well as decreased hip and abdominal strength. These impairments are contributing to her pain and difficulty with typical activities including walking and she will benefit from therapy to reduce pain, reduce urinary symptoms, and restore full function. Plan of Care Interventions Electrical Stimulation,Gait Training,Hot Pack/Cold Pack,Manual Therapy,Patient/Caregiver Education, Therapeutic Activities,Therapeutic Exercise PT Services Indicated Yes Treatment Frequency and 1 time a week for 6 visits Duration These treatments will address the objective and functional deficits as defined above. The patient will be advanced safely and appropriately in order for the patient to progress towards his/her prior level of function. Additional exercises will be introduced and as well as a comprehensive home exercise program upon discharge, if needed, ?to ensure carryover of functional gains achieved in the clinic. This treatment plan has been reviewed and agreement upon by the patient.
--- NOTE | 2025-09-08 16:19 | OPREHPOC ---
Outpatient Therapy Plan of Care This is a Multidisciplinary Plan of Care that may contain components documented by all disciplines (PT, OT, and ST.) PT Problem 1 PT Problem #1 Knowledge Deficit PT Goal 1 Goal / Goal Update 1. Patient will perform independent HEP Target Visit 3 Progress Met PT Problem 2 PT Problem #2 Pain PT Goal 1 Goal / Goal Update 1. Pain highest 2/10 with typical activities including exercise 2. No pain on pelvic exam to allow for pap smears etc. update 09/08/10 1. 5/10 and not as often 2. 1/10 Target Visit 6 Progress Partially Met PT Problem 3 PT Problem #3 Impaired Functional ADLs PT Goal 1 Goal / Goal Update 1. Patient will void no more than 8 times per 24 hour period 2. Patient will be able to hold urge to void at least 30 minutes update 09/08/25 1. improved 2. improved Target Visit 6 Progress Partially Met
--- NOTE | 2025-09-08 16:19 | PTOPDC ---
Assessment and note entered by Rica Bird DPT Evaluation Information Assessment Status Discharge Diagnosis g89.19 ICD-10 Condition Codes (PT) Weakness R53.1,Pelvic and perineal pain R10.2 Subjective Information Highest pain recently 5/10 and lowest 0/10. Pain is less often and not as high. Voiding 7-8 times a day and still peeing multiple times right before bed but is able to sleep through the night. Able to hold urge longer throughout the day. Feels comfortable with discharge today. Has tried pelvic wand without issue. Reported Pain Level Pain Score 0: Self Report Assessment PT Clinical Summary The patient has made excellent progress in therapy and reports overall decreased intensity and frequency of pain. She also reports improved ability to hold urge to void throughout the day. She demonstrates improved hip strength, improved pelvic floor muscle tone, coordination, and minimal pain with palpation, as well as no pain with abdominal palpation. Due to her progress, discharge is recommended at this time. She has been educated in thorough HEP and to follow up with MD and/or PT as needed. Plan of Care PT Services Indicated No
== END 2025-09-08 16:48 | disposition home or self-care (01) ==
LOC: ANHPT 15:45
PROVIDERS: PCP Family Medicine Adolescent Medicine; Visit Provider Student in an Organized Health Care Education/Training Program
DX: R10.20 Pelvic and perineal pain unspecified side (principal); G89.18 Other acute postprocedural pain
CPT/HCPCS: 97110; 97112; 97140; 97161; 97530